=== PATIENT | female | born 1960 | race Caucasian/White ===

== ENCOUNTER 2018-10-23 00:50 | Emergency (ER) | payer MEDICAID, MEDICARE ==
[~2018-10-23] VITALS: Ht 160 cm; Wt 50.0 kg
[2018-10-23] MEDS ORDERED: ipratropium/albuterol 3ml nebule NEB ONE (01:05)
[2018-10-23] MEDS ORDERED: methylPREDNISolone sod succ 125mg/2ml vial IV ONE (01:05)
[2018-10-23] MEDS ORDERED: albuterol 2.5 MG/3 ML nebule NEB ONE (01:05)
[2018-10-23] MEDS ORDERED: albuterol 2.5 mg/0.5ml nebule NEB ONE (01:05)
[2018-10-23 01:35] LABS: ABG BASE EXCESS -0.1 mmol/L (-2.0-3.0); ABG HCO3 24.3 mmol/L (22.0-26.0); ABG OXYGEN SATURATION 96.3 % (95-98); ABG PCO2 (T) 38.2 mmHg (32.0-45.0); ABG PH (T) 7.419 (7.350-7.450); ABG PO2 (T) 88.8 mmHg (83-108); ALLEN'S TEST Positive; FCOHb 1.9 % (0.5-1.5); FO2Hb 94.5 % (94-100); PATIENT TEMPERATURE 36.7; TOTAL HEMOGLOBIN 12.2 G/dl (12.0-16.0)
--- NOTE | 2018-10-23 02:16 | NUR ---
dr. don revisiting pt and told her she is thinking about admitting her. He will wait for her labs to come back.
[2018-10-23 02:39] LABS: BASOPHILS % (AUTO) 0.6 % (0-1); EOSINOPHILS # (AUTO) 0.4 X10'3 (0-0.9); EOSINOPHILS % (AUTO) 6.7 % (0-6); HEMOGLOBIN 11.8 g/dl (12.0-16.0); LYMPHOCYTES # (AUTO) 1.6 X10'3 (1.1-4.8); LYMPHOCYTES % (AUTO) 28.6 % (21-51); MEAN CORPUSCULAR HEMOGLOBIN 25.2 PG (27.0-31.0); MEAN CORPUSCULAR VOLUME 78.7 FL (78-98); MEAN PLATELET VOLUME 7.5 FL (7.4-10.4); MONOCYTES # (AUTO) 0.4 X10'3 (0-0.9); MONOCYTES % (AUTO) 7.8 % (2-12); NEUTROPHILS # (AUTO) 3.2 X10'3 (1.8-7.7); NEUTROPHILS % (AUTO) 56.3 % (42-75); PLATELET COUNT 306 X10'3 (140-440); RED CELL DISTRIBUTION WIDTH 15.1 % (11.5-14.5); WHITE BLOOD COUNT 5.7 X10'3 (4.5-11.0)
[2018-10-23 02:53] LABS: ALANINE AMINOTRANSFERASE 20 U/L (12-78); ALBUMIN/GLOBULIN RATIO 0.7 (1.1-1.5); ALKALINE PHOSPHATASE 135 IU/L (46-116); ANION GAP 9 (8-16); ASPARTATE AMINO TRANSFERASE 16 U/L (10-37); BILIRUBIN,TOTAL 0.2 MG/DL (0.1-1.0); BLOOD UREA NITROGEN 19 MG/DL (7-18); BUN/CREATININE RATIO 30.6 (6.6-38.0); CALCIUM 8.6 MG/DL (8.5-10.1); CHLORIDE 107 MMOL/L (99-107); CREATININE 0.62 MG/DL (0.40-0.90); GLUCOSE 114 MG/DL (70-104); POTASSIUM 3.4 MMOL/L (3.5-5.1); SODIUM 142 MMOL/L (135-145); TOTAL CARBON DIOXIDE 26.1 MMOL/L (24-32); TOTAL PROTEIN 7.1 G/DL (6.4-8.2); eGFR > 90 ML/MIN
[2018-10-23 03:00] LABS: INR 1.1 INR; PROTHROMBIN TIME 10.7 SECONDS (9.0-12.0)
[2018-10-23 03:01] LABS: PARTIAL THROMBOPLASTIN TIME 30 SECONDS (22-32)
[2018-10-23] MEDS ORDERED: PRED20TA PO (03:16)
[2018-10-23] MEDS ORDERED: ALBU8HFA PO (03:16)
[2018-10-23] MEDS ORDERED: AZIT-72 PO (03:16)
--- NOTE | 2018-10-23 03:20 | NUR ---
PT WITH FRIEND AT BEDSIDE. PT REMAINS POLITE AND COOPERATIVE AND WITH STABLE VS. ALL LABS RESULTED AND PT NOW DC READY.
[2018-10-23 03:48] VITALS: BP 125/89
== END 2018-10-23 03:52 | disposition home or self-care (01) ==
LOC: ER 00:51
DX: J44.1 Chronic obstructive pulmonary disease with (acute) exacerbation (principal); F17.200 Nicotine dependence, unspecified, uncomplicated; F12.10 Cannabis abuse, uncomplicated; F11.10 Opioid abuse, uncomplicated; Z56.0 Unemployment, unspecified; Z79.899 Other long term (current) drug therapy; Z90.710 Acquired absence of both cervix and uterus
CPT/HCPCS: 36415; 36600; 71045; 80053; 82803; 83880; 84484; 85018; 85025; 85610; 85730; 93005; 94640; 94760; 96374; 99284; J2930; J7611

== ENCOUNTER 2019-01-01 19:44 | Emergency (ER) | payer MEDICARE ==
[~2019-01-01] VITALS: Ht 157.5 cm; Wt 46.0 kg
[2019-01-01 20:36] LABS: BASOPHILS % (AUTO) 0.5 % (0-1); EOSINOPHILS # (AUTO) 0.3 X10'3 (0-0.9); EOSINOPHILS % (AUTO) 3.4 % (0-6); HEMATOCRIT 38.7 % (35.0-45.0); HEMOGLOBIN 13.1 g/dl (12.0-16.0); LYMPHOCYTES # (AUTO) 1.2 X10'3 (1.1-4.8); LYMPHOCYTES % (AUTO) 15.6 % (21-51); MEAN CORPUSCULAR HGB CONC 33.7 g/dL (33.0-36.5); MEAN CORPUSCULAR VOLUME 80.1 FL (78-98); MEAN PLATELET VOLUME 7.3 FL (7.4-10.4); MONOCYTES # (AUTO) 0.5 X10'3 (0-0.9); MONOCYTES % (AUTO) 6.3 % (2-12); NEUTROPHILS # (AUTO) 5.7 X10'3 (1.8-7.7); NEUTROPHILS % (AUTO) 74.2 % (42-75); PLATELET COUNT 283 X10'3 (140-440); RED BLOOD COUNT 4.83 X10'6 (4.20-5.60); RED CELL DISTRIBUTION WIDTH 17.2 % (11.5-14.5); WHITE BLOOD COUNT 7.7 X10'3 (4.5-11.0)
[2019-01-01 20:49] LABS: PARTIAL THROMBOPLASTIN TIME 31 SECONDS (22-32)
[2019-01-01 20:50] LABS: ALANINE AMINOTRANSFERASE 45 U/L (12-78); ALBUMIN 3.3 G/DL (3.4-5.0); ALBUMIN/GLOBULIN RATIO 0.8 (1.1-1.5); ALKALINE PHOSPHATASE 151 IU/L (46-116); ANION GAP 8 (8-16); ASPARTATE AMINO TRANSFERASE 34 U/L (10-37); BILIRUBIN,TOTAL 0.3 MG/DL (0.1-1.0); BLOOD UREA NITROGEN 13 MG/DL (7-18); BUN/CREATININE RATIO 18.1 (6.6-38.0); CALCIUM 8.8 MG/DL (8.5-10.1); CHLORIDE 106 MMOL/L (99-107); CREATININE 0.72 MG/DL (0.40-0.90); GLUCOSE 103 MG/DL (70-104); SODIUM 140 MMOL/L (135-145); TOTAL CARBON DIOXIDE 26.4 MMOL/L (24-32); TOTAL PROTEIN 7.4 G/DL (6.4-8.2); eGFR 83 ML/MIN
[2019-01-01] MEDS ORDERED: ipratropium/albuterol 3ml nebule NEB ONE (21:00)
[2019-01-01] MEDS ORDERED: PRED20TA PO (21:13)
[2019-01-01] MEDS ORDERED: ALBU8.5H8 INH (21:13)
[2019-01-01] MEDS ORDERED: AZIT-63 PO (21:13)
[2019-01-01] MEDS ORDERED: FLUT1DIS INH (21:13)
[2019-01-01] MEDS ORDERED: methylPREDNISolone sod succ 125mg/2ml vial IV ONE (21:15)
[2019-01-01] MEDS ORDERED: normal saline 1000ml 1,000 ML IV ONE (21:15)
[2019-01-01] MEDS ORDERED: azithromycin 250mg tablet PO ONE (21:15)
[2019-01-01 21:23] VITALS: BP 131/87
== END 2019-01-01 22:24 | disposition home or self-care (01) ==
LOC: ER 19:44
DX: J44.1 Chronic obstructive pulmonary disease with (acute) exacerbation (principal); M06.9 Rheumatoid arthritis, unspecified; F17.210 Nicotine dependence, cigarettes, uncomplicated; Z90.710 Acquired absence of both cervix and uterus; Z56.0 Unemployment, unspecified; Z79.2 Long term (current) use of antibiotics; Z79.899 Other long term (current) drug therapy
CPT/HCPCS: 36415; 71045; 80053; 84484; 85025; 85610; 85730; 93005; 94640; 94760; 96374; 99284; J2930; J7030

== ENCOUNTER 2021-01-25 11:07 | Emergency (ER) | payer MEDICARE, MEDICAID ==
[~2021-01-25] VITALS: Ht 160 cm; Wt 45.5 kg
[~2021-01-25 11:07] MED LIST: ALBU18HF2 INH; CLON0.1T2 PO; NICO-687 TD; ONDA4TAB6 PO
[2021-01-25 12:12] VITALS: BP 126/79
[2021-01-25 13:20] LABS: BASOPHILS % (AUTO) 0.5 % (0-1); EOSINOPHILS # (AUTO) 0.1 X10'3 (0-0.9); EOSINOPHILS % (AUTO) 1.9 % (0-6); HEMOGLOBIN 13.5 g/dl (12.0-16.0); LYMPHOCYTES # (AUTO) 2.1 X10'3 (1.1-4.8); LYMPHOCYTES % (AUTO) 28.4 % (21-51); MEAN CORPUSCULAR HEMOGLOBIN 28.2 PG (27.0-31.0); MEAN CORPUSCULAR VOLUME 85.7 FL (78-98); MEAN PLATELET VOLUME 7.5 FL (7.4-10.4); MONOCYTES # (AUTO) 0.5 X10'3 (0-0.9); NEUTROPHILS # (AUTO) 4.5 X10'3 (1.8-7.7); NEUTROPHILS % (AUTO) 62.2 % (42-75); PLATELET COUNT 243 X10'3 (140-440); RED BLOOD COUNT 4.79 X10'6 (4.20-5.60); RED CELL DISTRIBUTION WIDTH 13.9 % (11.5-14.5); WHITE BLOOD COUNT 7.2 X10'3 (4.5-11.0)
[2021-01-25 13:42] LABS: ALANINE AMINOTRANSFERASE 19 U/L (12-78); ALBUMIN 3.3 G/DL (3.4-5.0); ALBUMIN/GLOBULIN RATIO 0.9 (1.1-1.5); ALKALINE PHOSPHATASE 99 IU/L (46-116); ANION GAP 6 (8-16); ASPARTATE AMINO TRANSFERASE 16 U/L (10-37); BILIRUBIN,TOTAL 0.5 MG/DL (0.1-1.0); BLOOD UREA NITROGEN 10 MG/DL (7-18); BUN/CREATININE RATIO 15.9 (6.6-38.0); CALCIUM 8.6 MG/DL (8.5-10.1); CHLORIDE 103 MMOL/L (99-107); CREATININE 0.63 MG/DL (0.40-0.90); GLUCOSE 125 MG/DL (70-104); POTASSIUM 4.5 MMOL/L (3.5-5.1); SODIUM 140 MMOL/L (135-145); TOTAL CARBON DIOXIDE 30.9 MMOL/L (24-32); TOTAL PROTEIN 7.1 G/DL (6.4-8.2); eGFR > 90 ML/MIN
== END 2021-01-25 15:41 | disposition left against medical advice (07) ==
LOC: ER 11:08
DX: R06.02 Shortness of breath (principal); Z53.21 Procedure and treatment not carried out due to patient leaving prior to being seen by health care provider
CPT/HCPCS: 36415; 71046; 80053; 83880; 85025; 93005; 99285

== ENCOUNTER 2021-04-05 18:32 | Emergency (ER) | payer MEDICARE, MEDICAID ==
[~2021-04-05] VITALS: Ht 160 cm; Wt 45.5 kg
[2021-04-05 18:43] VITALS: BP 108/69
[2021-04-05 19:31] LABS: BASOPHILS % (AUTO) 0.5 % (0-1); EOSINOPHILS # (AUTO) 0.1 X10'3 (0-0.9); EOSINOPHILS % (AUTO) 2.4 % (0-6); HEMATOCRIT 38.8 % (35.0-45.0); HEMOGLOBIN 12.6 g/dl (12.0-16.0); LYMPHOCYTES # (AUTO) 1.9 X10'3 (1.1-4.8); LYMPHOCYTES % (AUTO) 32.4 % (21-51); MEAN CORPUSCULAR HEMOGLOBIN 28.1 PG (27.0-31.0); MEAN CORPUSCULAR HGB CONC 32.5 g/dL (33.0-36.5); MEAN CORPUSCULAR VOLUME 86.3 FL (78-98); MEAN PLATELET VOLUME 7.4 FL (7.4-10.4); MONOCYTES # (AUTO) 0.4 X10'3 (0-0.9); NEUTROPHILS # (AUTO) 3.3 X10'3 (1.8-7.7); NEUTROPHILS % (AUTO) 57.7 % (42-75); PLATELET COUNT 268 X10'3 (140-440); RED BLOOD COUNT 4.49 X10'6 (4.20-5.60); WHITE BLOOD COUNT 5.7 X10'3 (4.5-11.0)
[2021-04-05 19:38] LABS: ALANINE AMINOTRANSFERASE 23 U/L (12-78); ALBUMIN 3.2 G/DL (3.4-5.0); ALBUMIN/GLOBULIN RATIO 0.9 (1.1-1.5); ALKALINE PHOSPHATASE 106 IU/L (46-116); ANION GAP 5 (8-16); ASPARTATE AMINO TRANSFERASE 18 U/L (10-37); BILIRUBIN,TOTAL 0.2 MG/DL (0.1-1.0); BLOOD UREA NITROGEN 14 MG/DL (7-18); BUN/CREATININE RATIO 20.9 (6.6-38.0); CALCIUM 8.7 MG/DL (8.5-10.1); CHLORIDE 108 MMOL/L (99-107); CREATININE 0.67 MG/DL (0.40-0.90); GLUCOSE 104 MG/DL (70-104); POTASSIUM 4.4 MMOL/L (3.5-5.1); SODIUM 144 MMOL/L (135-145); TOTAL CARBON DIOXIDE 31.5 MMOL/L (24-32); TOTAL PROTEIN 6.9 G/DL (6.4-8.2); eGFR 90 ML/MIN
[2021-04-05] MEDS ORDERED: DOXY100C76 PO (20:01)
[2021-04-05] MEDS ORDERED: PRED20TA PO (20:01)
[2021-04-05] MEDS ORDERED: iohexol 350MG/ML 100ml bottle IV ONE (20:24)
[2021-04-05] MEDS ORDERED: ALBUTEROL INHALER 1 PUFF/90 MCG INHALER IH PRN (21:45)
[2021-04-05] MEDS ORDERED: albuterol 2.5 MG/3 ML nebule CONTNEB PRN (21:45)
[2021-04-05] MEDS ORDERED: albuterol 2.5 MG/3 ML nebule NEB ONE (21:45)
[2021-04-05] MEDS ORDERED: ALB0.5UD IH (21:46)
--- NOTE | 2021-04-05 22:24 | NUR ---
pt is ready to go, refused neb and inhaler treatment
--- NOTE | 2021-04-05 22:27 | NUR ---
pt seen and assesed by provider
== END 2021-04-05 22:27 | disposition home or self-care (01) ==
LOC: ER 18:33
DX: U07.1 COVID-19 (principal); J44.1 Chronic obstructive pulmonary disease with (acute) exacerbation; R06.02 Shortness of breath; M19.90 Unspecified osteoarthritis, unspecified site; M06.9 Rheumatoid arthritis, unspecified; F15.90 Other stimulant use, unspecified, uncomplicated; Z56.0 Unemployment, unspecified; Z88.6 Allergy status to analgesic agent; Z79.2 Long term (current) use of antibiotics; Z79.899 Other long term (current) drug therapy
CPT/HCPCS: 36415; 71045; 71275; 80053; 83880; 84484; 85025; 87635; 93005; 99285; C9803; Q9967

== ENCOUNTER 2022-06-15 23:51 | Emergency (ER) | payer MEDICARE, MEDICAID ==
[~2022-06-15] VITALS: Ht 160 cm; Wt 50.0 kg
[2022-06-16] MEDS ORDERED: predniSONE 20 mg tablet PO ONE (01:00)
[2022-06-16] MEDS ORDERED: albuterol 2.5 MG/3 ML nebule CONTNEB PRN (01:00)
[2022-06-16] MEDS ORDERED: ipratropium 0.5 MG/2.5ML nebule IH ONE (01:00)
[2022-06-16] MEDS ORDERED: ipratropium/albuterol 3ml nebule NEB ONE (01:10)
[2022-06-16] MEDS ORDERED: albuterol 2.5 MG/3 ML nebule NEB ONE (01:10)
[2022-06-16] MEDS ORDERED: ALBU90AE INH (01:16)
[2022-06-16] MEDS ORDERED: PRED20TA PO (01:16)
[2022-06-16] MEDS ORDERED: BECL7.3A INH (01:16)
[2022-06-16 02:01] VITALS: BP 146/78
== END 2022-06-16 02:03 | disposition home or self-care (01) ==
LOC: ER 23:52
DX: J44.1 Chronic obstructive pulmonary disease with (acute) exacerbation (principal); J44.9 Chronic obstructive pulmonary disease, unspecified; M19.90 Unspecified osteoarthritis, unspecified site; Z88.5 Allergy status to narcotic agent; Z56.0 Unemployment, unspecified
CPT/HCPCS: 71045; 94640; 99284; J7512; 94760

== ENCOUNTER 2022-06-25 11:55 | Emergency (ER) | payer MEDICARE, MEDICAID ==
[~2022-06-25] VITALS: Ht 157.5 cm; Wt 54.5 kg
[~2022-06-25 11:55] MED LIST changes: +ALBU90AE INH; +BECL7.3A INH; +PRED20TA PO
[2022-06-25 12:40] VITALS: BP 108/71
[2022-06-25] MEDS ORDERED: ALBU8HFA PO (17:13)
[2022-06-25] MEDS ORDERED: PRED20TA PO (17:13)
[2022-06-25] MEDS ORDERED: PENI500T2 PO (17:13)
== END 2022-06-25 17:59 | disposition home or self-care (01) ==
LOC: ER 11:55
DX: K08.89 Other specified disorders of teeth and supporting structures (principal); J44.1 Chronic obstructive pulmonary disease with (acute) exacerbation; M19.90 Unspecified osteoarthritis, unspecified site; F17.200 Nicotine dependence, unspecified, uncomplicated; F15.90 Other stimulant use, unspecified, uncomplicated; Z90.710 Acquired absence of both cervix and uterus; Z56.0 Unemployment, unspecified; Z88.5 Allergy status to narcotic agent; Z79.2 Long term (current) use of antibiotics; Z79.899 Other long term (current) drug therapy
CPT/HCPCS: 99283

== ENCOUNTER 2023-07-24 23:05 | Emergency (ER) | payer BC, MEDICAID ==
[~2023-07-24] VITALS: Ht 160 cm; Wt 50.9 kg
[~2023-07-24 23:05] MED LIST changes: +ALB0.5UD IH; -ALBU90AE INH; +ATR0.5NEB IH; -BECL7.3A INH; -CLON0.1T2 PO; +FLUT1DIS4 INH; +METH10SO PO; -NICO-687 TD; +NICO-731 TOP; -ONDA4TAB6 PO; -PRED20TA PO
[2023-07-24 23:08] VITALS: TEMP 98.4
[2023-07-24 23:38] LABS: BASOPHILS % (AUTO) 0.6 % (0-1); EOSINOPHILS # (AUTO) 0.3 X10'3 (0-0.9); EOSINOPHILS % (AUTO) 4.4 % (0-6); HEMATOCRIT 37.4 % (35.0-45.0); HEMOGLOBIN 12.1 g/dl (12.0-16.0); LYMPHOCYTES # (AUTO) 1.6 X10'3 (1.1-4.8); LYMPHOCYTES % (AUTO) 23.6 % (21-51); MEAN CORPUSCULAR HEMOGLOBIN 27.1 PG (27.0-31.0); MEAN CORPUSCULAR HGB CONC 32.4 g/dL (33.0-36.5); MEAN CORPUSCULAR VOLUME 83.6 FL (78-98); MEAN PLATELET VOLUME 6.8 FL (7.4-10.4); MONOCYTES # (AUTO) 0.5 X10'3 (0-0.9); MONOCYTES % (AUTO) 7.8 % (2-12); NEUTROPHILS # (AUTO) 4.3 X10'3 (1.8-7.7); NEUTROPHILS % (AUTO) 63.6 % (42-75); PLATELET COUNT 223 X10'3 (140-440); RED BLOOD COUNT 4.47 X10'6 (4.20-5.60); RED CELL DISTRIBUTION WIDTH 14.4 % (11.5-14.5); WHITE BLOOD COUNT 6.7 X10'3 (4.5-11.0)
[2023-07-24 23:49] LABS: ALANINE AMINOTRANSFERASE 93 U/L (12-78); ALBUMIN 3.1 G/DL (3.4-5.0); ALBUMIN/GLOBULIN RATIO 0.8 (1.1-1.5); ALKALINE PHOSPHATASE 145 IU/L (46-116); ANION GAP 7 (8-16); ASPARTATE AMINO TRANSFERASE 126 U/L (10-37); BILIRUBIN,TOTAL 0.2 MG/DL (0.1-1.0); BLOOD UREA NITROGEN 16 MG/DL (7-18); BUN/CREATININE RATIO 26.7 (10.0-20.0); CALCIUM 8.5 MG/DL (8.5-10.1); CHLORIDE 102 MMOL/L (99-107); GLUCOSE 107 MG/DL (70-104); POTASSIUM 3.8 MMOL/L (3.5-5.1); SODIUM 138 MMOL/L (135-145); TOTAL CARBON DIOXIDE 29.5 MMOL/L (24-32); TOTAL PROTEIN 6.8 G/DL (6.4-8.2); eCRCL 79 ML/MIN; eGFR > 90 ML/MIN
[2023-07-24 23:57] LABS: PRO BRAIN NATRIURETIC PEPTIDE 83 PG/ML (0-125)
[2023-07-25] MEDS ORDERED: ipratropium 0.5 MG/2.5ML nebule IH ONE (00:25)
[2023-07-25] MEDS ORDERED: amox tr/potassium clavulanate 875/125mg TAB PO ONE (00:25)
[2023-07-25] MEDS ORDERED: normal saline 1000ML IV soln IVB ONE (00:25)
[2023-07-25] MEDS ORDERED: methylPREDNISolone sod succ 125mg/2ml vial IV ONE (00:25)
[2023-07-25] MEDS ORDERED: albuterol 2.5 MG/3 ML nebule CONTNEB PRN (00:25)
[2023-07-25 00:48] VITALS: PULSE 76; RESP 20; O2SAT 94
[2023-07-25 02:30] VITALS: BP 122/71; PULSE 81; RESP 19; O2SAT 91
[2023-07-25] MEDS ORDERED: PRED20TA PO (02:33)
[2023-07-25] MEDS ORDERED: ALBU8HFA PO (02:33)
[2023-07-25] MEDS ORDERED: AMOX-580 PO (02:33)
== END 2023-07-25 02:49 | disposition home or self-care (01) ==
LOC: ER 23:06
DX: J44.1 Chronic obstructive pulmonary disease with (acute) exacerbation (principal); R05.9 Cough, unspecified; J44.9 Chronic obstructive pulmonary disease, unspecified; M19.90 Unspecified osteoarthritis, unspecified site; F15.90 Other stimulant use, unspecified, uncomplicated; Z88.5 Allergy status to narcotic agent; Z79.899 Other long term (current) drug therapy; Z90.710 Acquired absence of both cervix and uterus
CPT/HCPCS: 36415; 71045; 80053; 83880; 84484; 85025; 93005; 94640; 94644; 94645; 96361; 96374; 99285; J2930; J7030; 94760; A4615; A7015

== ENCOUNTER 2023-09-01 23:03 | Emergency (ER) | payer BC, MEDICAID ==
[~2023-09-01] VITALS: Ht 160 cm; Wt 50.0 kg
[2023-09-01 23:34] LABS: BASOPHILS % (AUTO) 0.7 % (0-1); EOSINOPHILS # (AUTO) 0.3 X10'3 (0-0.9); EOSINOPHILS % (AUTO) 6.3 % (0-6); HEMOGLOBIN 11.1 g/dl (12.0-16.0); LYMPHOCYTES # (AUTO) 1.3 X10'3 (1.1-4.8); LYMPHOCYTES % (AUTO) 25.1 % (21-51); MEAN CORPUSCULAR HEMOGLOBIN 27.1 PG (27.0-31.0); MEAN CORPUSCULAR HGB CONC 32.6 g/dL (33.0-36.5); MEAN CORPUSCULAR VOLUME 83.4 FL (78-98); MONOCYTES # (AUTO) 0.5 X10'3 (0-0.9); MONOCYTES % (AUTO) 9.3 % (2-12); NEUTROPHILS % (AUTO) 58.6 % (42-75); PLATELET COUNT 210 X10'3 (140-440); RED BLOOD COUNT 4.08 X10'6 (4.20-5.60); RED CELL DISTRIBUTION WIDTH 13.9 % (11.5-14.5); WHITE BLOOD COUNT 5.1 X10'3 (4.5-11.0)
[2023-09-01 23:48] LABS: ALANINE AMINOTRANSFERASE 42 U/L (12-78); ALBUMIN 2.8 G/DL (3.4-5.0); ALBUMIN/GLOBULIN RATIO 0.8 (1.1-1.5); ALKALINE PHOSPHATASE 129 IU/L (46-116); ANION GAP 6 (8-16); ASPARTATE AMINO TRANSFERASE 34 U/L (10-37); BILIRUBIN,TOTAL 0.2 MG/DL (0.1-1.0); BLOOD UREA NITROGEN 15 MG/DL (7-18); CALCIUM 7.9 MG/DL (8.5-10.1); CHLORIDE 110 MMOL/L (99-107); CREATININE 0.79 MG/DL (0.40-0.90); GLUCOSE 106 MG/DL (70-104); SODIUM 146 MMOL/L (135-145); TOTAL CARBON DIOXIDE 30.1 MMOL/L (24-32); TOTAL PROTEIN 6.2 G/DL (6.4-8.2); eCRCL 58 ML/MIN; eGFR 74 ML/MIN
[2023-09-01 23:50] LABS: PRO BRAIN NATRIURETIC PEPTIDE 276 PG/ML (0-125)
[2023-09-02] MEDS ORDERED: ADV50100 INH (00:30)
[2023-09-02 01:39] VITALS: BP 123/82; PULSE 74; RESP 16; TEMP 98.6; O2SAT 98
== END 2023-09-02 01:42 | disposition home or self-care (01) ==
LOC: ER 23:04
DX: R06.02 Shortness of breath (principal); Z20.822 Contact with and (suspected) exposure to COVID-19; J44.9 Chronic obstructive pulmonary disease, unspecified; M19.90 Unspecified osteoarthritis, unspecified site; F15.90 Other stimulant use, unspecified, uncomplicated; Z88.5 Allergy status to narcotic agent; Z79.899 Other long term (current) drug therapy
CPT/HCPCS: 36415; 71045; 80053; 83880; 84484; 85025; 87502; 87503; 87811; 93005; 99285

== ENCOUNTER 2023-09-19 19:47 | Emergency (ER) | payer BC, MEDICAID ==
[~2023-09-19] VITALS: Ht 160 cm; Wt 50.0 kg
[~2023-09-19 19:47] MED LIST changes: +ADV50100 INH
[2023-09-19 20:27] VITALS: PULSE 82; RESP 16; O2SAT 94
[2023-09-19] MEDS: ipratropium/albuterol 3ml nebule NEB ONE (20:27)
[2023-09-19 20:33] VITALS: PULSE 82; RESP 16; O2SAT 93
[2023-09-19] MEDS: magnesium 2GM in 50ml NS 50 ML IV ONE (20:35)
[2023-09-19] MEDS: methylPREDNISolone sod succ 125mg/2ml vial IV ONE (20:35)
[2023-09-19 20:45] VITALS: RESP 18
[2023-09-19 20:53] LABS: BASOPHILS % (AUTO) 0.5 % (0-1); EOSINOPHILS # (AUTO) 0.3 X10'3 (0-0.9); EOSINOPHILS % (AUTO) 5.8 % (0-6); HEMOGLOBIN 11.8 g/dl (12.0-16.0); LYMPHOCYTES # (AUTO) 1.7 X10'3 (1.1-4.8); LYMPHOCYTES % (AUTO) 28.5 % (21-51); MEAN CORPUSCULAR HEMOGLOBIN 26.9 PG (27.0-31.0); MEAN CORPUSCULAR HGB CONC 32.7 g/dL (33.0-36.5); MEAN CORPUSCULAR VOLUME 82.2 FL (78-98); MEAN PLATELET VOLUME 6.9 FL (7.4-10.4); MONOCYTES # (AUTO) 0.4 X10'3 (0-0.9); MONOCYTES % (AUTO) 6.4 % (2-12); NEUTROPHILS # (AUTO) 3.5 X10'3 (1.8-7.7); NEUTROPHILS % (AUTO) 58.8 % (42-75); PLATELET COUNT 308 X10'3 (140-440); RED BLOOD COUNT 4.38 X10'6 (4.20-5.60); RED CELL DISTRIBUTION WIDTH 14.3 % (11.5-14.5)
[2023-09-19 21:41] LABS: ALBUMIN 2.8 G/DL (3.4-5.0); ANION GAP 4 (8-16); BLOOD UREA NITROGEN 14 MG/DL (7-18); BUN/CREATININE RATIO 20.6 (10.0-20.0); CALCIUM 7.9 MG/DL (8.5-10.1); CHLORIDE 108 MMOL/L (99-107); CREATININE 0.68 MG/DL (0.40-0.90); GLUCOSE 113 MG/DL (70-104); POTASSIUM 4.1 MMOL/L (3.5-5.1); PRO BRAIN NATRIURETIC PEPTIDE 577 PG/ML (0-125); SODIUM 146 MMOL/L (135-145); TOTAL CARBON DIOXIDE 33.7 MMOL/L (24-32); eCRCL 68 ML/MIN; eGFR 88 ML/MIN
[2023-09-19] MEDS: dexamethasone sod phosphate 10mg/ml inj IV STA (21:49)
[2023-09-19] MEDS: furosemide 10 MG/1 ML 10ml inj IV ONE (22:20)
[2023-09-20 00:44] VITALS: BP 93/63; PULSE 74; O2SAT 92
[2023-09-20 01:28] VITALS: TEMP 98
== END 2023-09-20 01:31 | disposition home or self-care (01) ==
LOC: ER 19:48
DX: J44.1 Chronic obstructive pulmonary disease with (acute) exacerbation (principal); M06.9 Rheumatoid arthritis, unspecified; F15.90 Other stimulant use, unspecified, uncomplicated; F11.20 Opioid dependence, uncomplicated; Z56.0 Unemployment, unspecified; Z88.5 Allergy status to narcotic agent; Z88.8 Allergy status to other drugs, medicaments and biological substances; Z79.899 Other long term (current) drug therapy
CPT/HCPCS: 36415; 71045; 80048; 83880; 84484; 85025; 93005; 94640; 96365; 96375; 99285; J1100; J1940; J2930; J3475; 94760

== ENCOUNTER 2023-09-22 15:10 | Emergency (ER) | payer BC, MEDICAID ==
[~2023-09-22] VITALS: Ht 160 cm; Wt 50.0 kg
[2023-09-22 15:56] LABS: BASOPHILS % (AUTO) 0.5 % (0-1); EOSINOPHILS # (AUTO) 0.4 X10'3 (0-0.9); EOSINOPHILS % (AUTO) 5.1 % (0-6); HEMATOCRIT 37.8 % (35.0-45.0); LYMPHOCYTES # (AUTO) 1.7 X10'3 (1.1-4.8); LYMPHOCYTES % (AUTO) 23.8 % (21-51); MEAN CORPUSCULAR HEMOGLOBIN 26.4 PG (27.0-31.0); MEAN CORPUSCULAR HGB CONC 31.9 g/dL (33.0-36.5); MEAN CORPUSCULAR VOLUME 82.9 FL (78-98); MEAN PLATELET VOLUME 6.8 FL (7.4-10.4); MONOCYTES # (AUTO) 0.5 X10'3 (0-0.9); MONOCYTES % (AUTO) 6.8 % (2-12); NEUTROPHILS # (AUTO) 4.6 X10'3 (1.8-7.7); NEUTROPHILS % (AUTO) 63.8 % (42-75); PLATELET COUNT 349 X10'3 (140-440); RED BLOOD COUNT 4.56 X10'6 (4.20-5.60); RED CELL DISTRIBUTION WIDTH 14.4 % (11.5-14.5); WHITE BLOOD COUNT 7.3 X10'3 (4.5-11.0)
[2023-09-22 16:30] LABS: ANION GAP 8 (8-16); BLOOD UREA NITROGEN 21 MG/DL (7-18); BUN/CREATININE RATIO 38.2 (10.0-20.0); CALCIUM 8.6 MG/DL (8.5-10.1); CHLORIDE 105 MMOL/L (99-107); CREATININE 0.55 MG/DL (0.40-0.90); GLUCOSE 99 MG/DL (70-104); POTASSIUM 4.3 MMOL/L (3.5-5.1); PRO BRAIN NATRIURETIC PEPTIDE 336 PG/ML (0-125); SODIUM 144 MMOL/L (135-145); TOTAL CARBON DIOXIDE 31.5 MMOL/L (24-32); eCRCL 84 ML/MIN; eGFR > 90 ML/MIN
[2023-09-22] MEDS: ipratropium/albuterol 3ml nebule NEB STA (18:55)
[2023-09-22 18:58] VITALS: PULSE 73; RESP 16; O2SAT 93
[2023-09-22] MEDS: dexamethasone sod phosphate 10mg/ml inj PO STA (18:59)
[2023-09-22 19:03] VITALS: PULSE 68; RESP 20; O2SAT 96
[2023-09-22] MEDS ORDERED: BUDE10.2 INH (19:03)
[2023-09-22 19:14] VITALS: BP 115/71; PULSE 76; RESP 18; TEMP 98.8; O2SAT 93
== END 2023-09-22 19:26 | disposition home or self-care (01) ==
LOC: ER 15:10
DX: J40 Bronchitis, not specified as acute or chronic (principal); J44.9 Chronic obstructive pulmonary disease, unspecified; M19.90 Unspecified osteoarthritis, unspecified site; F15.90 Other stimulant use, unspecified, uncomplicated; Z88.5 Allergy status to narcotic agent; Z79.899 Other long term (current) drug therapy
CPT/HCPCS: 36415; 71045; 80048; 83880; 84484; 85025; 93005; 94640; 99285; J1100

== ENCOUNTER 2024-06-15 11:05 | Emergency (ER) | payer BC, MEDICAID ==
[~2024-06-15] VITALS: Ht 160 cm; Wt 50.0 kg
[~2024-06-15 11:05] MED LIST changes: -ADV50100 INH; +BUDE10.2 INH
[2024-06-15 11:40] LABS: BASOPHILS # (AUTO) 0.1 X10'3 (0-0.2); BASOPHILS % (AUTO) 0.5 % (0-1); EOSINOPHILS # (AUTO) 0.1 X10'3 (0-0.9); EOSINOPHILS % (AUTO) 0.7 % (0-6); HEMOGLOBIN 11.5 g/dl (12.0-16.0); LYMPHOCYTES # (AUTO) 1.5 X10'3 (1.1-4.8); MEAN CORPUSCULAR HEMOGLOBIN 22.8 PG (27.0-31.0); MEAN CORPUSCULAR VOLUME 71.4 FL (78-98); MEAN PLATELET VOLUME 6.6 FL (7.4-10.4); MONOCYTES # (AUTO) 0.6 X10'3 (0-0.9); MONOCYTES % (AUTO) 5.3 % (2-12); NEUTROPHILS # (AUTO) 8.3 X10'3 (1.8-7.7); NEUTROPHILS % (AUTO) 79.5 % (42-75); PLATELET COUNT 636 X10'3 (140-440); RED BLOOD COUNT 5.04 X10'6 (4.20-5.60); RED CELL DISTRIBUTION WIDTH 17.7 % (11.5-14.5); WHITE BLOOD COUNT 10.4 X10'3 (4.5-11.0)
[2024-06-15 11:54] LABS: ALANINE AMINOTRANSFERASE 21 U/L (12-78); ALBUMIN/GLOBULIN RATIO 0.6 (1.1-1.5); ALKALINE PHOSPHATASE 113 IU/L (46-116); ANION GAP 12 (8-16); ASPARTATE AMINO TRANSFERASE 16 U/L (10-37); BILIRUBIN,TOTAL 0.4 MG/DL (0.1-1.0); BLOOD UREA NITROGEN 26 MG/DL (7-18); BUN/CREATININE RATIO 44.1 (10.0-20.0); CALCIUM 9.1 MG/DL (8.5-10.1); CHLORIDE 102 MMOL/L (99-107); CREATININE 0.59 MG/DL (0.40-0.90); GLUCOSE 115 MG/DL (70-104); LIPASE 14 U/L (16-77); POTASSIUM 3.7 MMOL/L (3.5-5.1); SODIUM 138 MMOL/L (135-145); TOTAL PROTEIN 8.3 G/DL (6.4-8.2); eCRCL 78 ML/MIN; eGFR > 90 ML/MIN
[2024-06-15 12:13] LABS: INR 1.1 INR; PROTHROMBIN TIME 11.1 SECONDS (9.0-12.0)
[2024-06-15] MEDS: cloNIDine 0.1 mg tablet PO SCH (12:16)
[2024-06-15] MEDS: LIDOcaine 2% Viscous 15ml cup MM ONE (12:16)
[2024-06-15] MEDS: mag hydrox/Alum hydrox/simeth 30ml oral suspension PO ONE (12:16)
[2024-06-15] MEDS: famotidine 20mg tablet PO ONE (12:16)
[2024-06-15] MEDS: dicyclomine 10 MG capsule PO ONE (12:16)
[2024-06-15] MEDS: ondansetron 4mg rapidly disintigrating tab PO ONE (12:16)
[2024-06-15] MEDS: HYDROmorphone 1 mg/ml syringe IV ONE (12:44)
[2024-06-15] MEDS: normal saline 1000ml 1,000 ML IV ONE (12:45)
[2024-06-15 13:47] VITALS: BP 154/86; PULSE 100; RESP 16; TEMP 97.9; O2SAT 96
== END 2024-06-15 13:59 ==
LOC: ER 11:05
DX: S06.5X0A Traumatic subdural hemorrhage without loss of consciousness, initial encounter (principal); F11.23 Opioid dependence with withdrawal; F19.90 Other psychoactive substance use, unspecified, uncomplicated; F15.90 Other stimulant use, unspecified, uncomplicated; M19.90 Unspecified osteoarthritis, unspecified site; J44.9 Chronic obstructive pulmonary disease, unspecified; Z90.710 Acquired absence of both cervix and uterus; Z56.0 Unemployment, unspecified; Z88.5 Allergy status to narcotic agent; Z79.899 Other long term (current) drug therapy; W18.39XA Other fall on same level, initial encounter; Y93.89 Activity, other specified; Y92.091 Bathroom in other non-institutional residence as the place of occurrence of the external cause; Y99.8 Other external cause status
CPT/HCPCS: 36415; 70450; 80053; 82948; 83690; 84484; 85025; 85610; 93005; 96361; 96374; 99291; J1171; J7030; A4615

== ENCOUNTER 2025-07-16 20:45 | Emergency (ER) | payer BC, MEDICAID ==
[~2025-07-16] VITALS: Ht 157.5 cm; Wt 54.0 kg
[2025-07-16 21:11] LABS: MEAN PLATELET VOLUME 6.2 FL (7.4-10.4); RED CELL DISTRIBUTION WIDTH 13.8 % (11.5-14.5)
--- NOTE | 2025-07-16 21:27 | RADIOLOGY REPORT ---
EXAM: DI CHEST,SINGLE VIEW CLINICAL HISTORY: CP TECHNIQUE: Single AP view of the chest WID: COMPARISON: DI CHEST,SINGLE VIEW on DOS: 09/22/23 FINDINGS: Lines and tubes: None Chest: The heart size and pulmonary vasculature is within normal limits. Prominence of the central pulmonary arteries. Mild calcified plaque projects over the aortic arch. No pleural effusion, pneumothorax, or consolidation. The osseous structures are grossly intact. IMPRESSION: 1. No acute cardiopulmonary abnormality. 2. Prominence of the central pulmonary arteries which can be seen in the setting of pulmonary hypertension.
[2025-07-16 21:30] LABS: CREATININE 0.63 MG/DL (0.40-0.90); PRO BRAIN NATRIURETIC PEPTIDE 266 PG/ML (0-125); TOTAL CARBON DIOXIDE 28.2 MMOL/L (24-32); eCRCL 72 ML/MIN; eGFR > 90 ML/MIN
[2025-07-16 23:17] LABS: LEUKOCYTE ESTERASE ,URINE NEGATIVE (Neg); NITRITES, URINE NEGATIVE (Neg); OCCULT BLOOD,URINE NEGATIVE (Neg)
[2025-07-16 23:23] LABS: UA COLLECTION TYPE NON-SPECIFIED
--- NOTE | 2025-07-17 00:26 | Physician Documentation ---
History of Present Illness ~ Chief Complaint: Chest Pain Stated Complaint: CHEST PAIN Time Seen by MD: 21:22 Primary Medical Doctor: none Mode of Arrival: EMS HPI Patient is a very pleasant 64-year-old female that presents to the emergency department for evaluation of substernal chest pain with cough and inspiration. Patient reports that she has recently been ill and has been coughing more than normal. Patient reports that she has a history of COPD. Patient reports that her chest hurts when she coughs. Patient reports he has a history of rheumatoid arthritis. Patient denies fever chills nausea vomiting diarrhea at this time. Medication Reconciliation Allergies: Coded Allergies: morphine (Unverified Adverse Reaction, Unknown, ANGERY, 07/24/23) Scheduled Azithromycin (Azithromycin), 1 TAB PO DAILY Budesonide/Formoterol Fumarate (Symbicort 160-4.5 Mcg Inhaler), 2 PUFFS INH Q12H Fluticasone/Salmeterol (Advair 250-50 Diskus), 1 PUFFS INH Q12H Methadone Hcl (Methadone Liquid), 120 MG PO DAILY, (Reported) Nicotine (Nicotine Patch), 1 PATCH TOP DAILY Prednisone* (Prednisone*), 1 TAB PO DAILY Scheduled PRN Albuterol Sulfate (Ventolin Hfa), 2 PUFFS INH Q4H PRN for SOB or wheezing Albuterol Sulfate Nebs* (Proventil Nebs*), 2.5 MG IH Q4H PRN for SOB or wheezing Ipratropium [place] Neb* (Atrovent Neb*), 0.5 MG IH Q4H PRN for SOB or wheezing Past Medical History Past Medical History: COPD, Arthritis, Rheumatoid Arthritis Past Surgical History: hysterectomy Patient History: FH: COPD (chronic obstructive pulmonary disease) MOTHER (COPD), Other Past Family History: None Alcohol Use: None Drug Use: methamphetamine, heroin, other Lives with: Other Lives In: Home Occupation: unemployed Review of Systems ROS As stated above in the HPI, otherwise all systems are reviewed and negative. Physical Exam Vital Signs: Temperature: 98.4, Source: Oral, Heart Rate: 112, Respiratory Rate: 22, BP: 123/94, Pulse Oximetry: 97, Weight: 54.000 Oxygen Flow Rate: 0 Physical Exam VITALS: Reviewed and as above. GENERAL: Alert, no apparent distress. HEENT: Normocephalic, atraumatic, PERRL, EOMI, dry mucosa, no erythema RESPIRATORY: Mild inspiratory wheezing noted upon auscultation, no respiratory distress, patient reports improvement in comfort after breathing treatment. CHEST: No accessory muscle use, no retractions CV: Regular rate, rhythm, no edema, no murmur, No: JVD GI: Soft, non-tender, bowels sounds present, no rebound, guarding, or rigidity BACK: No CVA tenderness, or swelling MUSCULOSKELETAL No deformities, no edema, tenderness with palpation to the midsternum, patient reports chest pain with cough and deep inspiration. SKIN: Warm and dry, no rash NEURO: Oriented x4, No motor or sensory deficit PSYCH: Normal mood and affect, no agitation Progress Results/Orders Results/Orders Completed Orders - TREVA VALDEZ Urinalysis, Cult If Indicated (07/16/25 21:55) Azithromycin Tablet (Zithromax Tablet) (07/17/25 00:55) Prednisone Tablet (Prednisone Tablet) (07/17/25 00:55) Ipratropium/Albuterol Nebule (Ipratrop/A (07/17/25 01:20) Prednisone Tablet (Prednisone Tablet) (07/17/25 01:25) Ipratropium/Albuterol Nebule (Ipratrop/A (07/17/25 01:28) Medications Received in ER Medications (Trade) Dose Ordered Sig/Coni Route PRN Reason Start Time Stop Time Status Last Admin Dose Admin (ipratrop/ albuterol 0.5-3(2.5) MG/3ml nebule) 3 ml ONCE STAT NEB 07/17/25 01:28 07/17/25 01:33 DC 07/17/25 01:35 3 ML Vital Signs 07/16/25 07/16/25 07/17/25 20:53 20:58 01:36 Temp 98.4 Pulse 112 97 Resp 22 20 B/P (MAP) 123/94 Pulse Ox 97 O2 Delivery Room Air* O2 Flow Rate 0 0 FiO2 21 Laboratory Tests Test 07/16/25 21:03 07/16/25 22:49 07/16/25 23:16 07/16/25 23:57 White Blood Count 12.1 H Red Blood Count 4.46 Hemoglobin 10.9 L Hematocrit 33.6 L Mean Corpuscular Volume 75.3 L Mean Corpuscular Hemoglobin 24.5 L Mean Corpuscular Hemoglobin Concent 32.5 L Red Cell Distribution Width 13.8 Platelet Count 527 H Mean Platelet Volume 6.2 L Neutrophils (%) (Auto) 87.4 H Lymphocytes (%) (Auto) 5.6 L Monocytes (%) (Auto) 5.5 Eosinophils (%) (Auto) 1.2 Basophils (%) (Auto) 0.3 Neutrophils # (Auto) 10.6 H Lymphocytes # (Auto) 0.7 L Monocytes # (Auto) 0.7 Eosinophils # (Auto) 0.1 Basophils # (Auto) 0.0 CBC Comment Sodium Level 141 Potassium Level 3.7 Chloride Level 106 Carbon Dioxide Level 28.2 Anion Gap 7 L Blood Urea Nitrogen 16 Creatinine 0.63 Estimated GFR/1.73 m2 > 90 BUN/Creatinine Ratio 25.4 H Glucose Level 189 H Calcium Level 8.6 Troponin I High Sensitivity 5 5 7 Pro-B-Type Natriuretic Peptide 266 H Albumin 2.1 L Chemistry Comments Urine Specimen Description Non-specified Urine Color Yellow Urine Clarity Clear Urine pH 7.0 Urine Specific [place] 1.020 Urine Protein Negative Urine Glucose (UA) Negative Urine Ketones Negative Urine Occult Blood Negative Urine Nitrite Negative Urine Bilirubin Negative Urine Urobilinogen 0.2 Urine Leukocyte Esterase Negative Urine Culture Indicated Not ind Volume Urine Centrifuged 10 ml Urine Comment Troponin I High Sens Percent Delta 0 40 Troponin I Hi Sens Absolute Change 0 2 Medical Decision Making Additional information obtaine: other Findings Medical Decision Making - Moderate Complexity Chief Complaint: Substernal chest pain with cough and inspiration History of Present Illness: This 64-year-old female with a history of chronic obstructive pulmonary disease (COPD) and rheumatoid arthritis presents to the emergency department with substernal chest pain that is pleuritic in nature, worsening with cough and inspiration. The patient reports recent illness with increased cough frequency beyond her baseline. She denies shortness of breath, lightheadedness, radiating chest pain, fever, chills, nausea, vomiting, or diarrhea. Differential Diagnosis Considered: The differential diagnosis for pleuritic chest pain in a patient with COPD includes life-threatening conditions such as acute coronary syndrome, pulmonary embolism, pneumothorax, and pneumonia, as well as acute exacerbation of COPD, viral pleurisy, costochondritis, and musculoskeletal chest wall pain. [3-5] Diagnostic Workup: Laboratory studies: Mildly elevated white blood cell count, consistent with acute exacerbation of COPD or recent viral illness. Cardiac biomarkers negative for acute myocardial injury. 12-lead electrocardiogram: No acute ST-segment changes, no new conduction abnormalities, no evidence of ischemia or infarction. Chest radiograph: No infiltrate, effusion, pneumothorax, or other acute cardiopulmonary process. Complete cardiac workup: Negative for acute coronary syndrome. Assessment: Based on the clinical presentation of pleuritic chest pain in the setting of recent illness with increased cough in a patient with known COPD, combined with reassuring diagnostic studies, the most likely diagnosis is acute exacerbation of COPD with associated pleuritic chest pain. [2][5] The patient's presentation with increased cough frequency beyond baseline is consistent with a mild to moderate COPD exacerbation. [2][5] Life-threatening etiologies including acute coronary syndrome, pulmonary embolism, pneumothorax, and pneumonia have been appropriately excluded. [6] The mildly elevated white blood cell count is consistent with acute exacerbation of COPD and does not suggest bacterial pneumonia in the absence of fever or infiltrate on chest radiography. [5] Plan: The patient is hemodynamically stable and appropriate for discharge home with outpatient follow-up and treatment for acute exacerbation of COPD. Discharge plan includes: Systemic corticosteroids: Prednisone 40 mg orally daily for 5 days. Systemic corticosteroids improve lung function, oxygenation, and shorten recovery time in COPD exacerbations. A 5-day course is as effective as longer courses with fewer adverse effects. [1][7] Antibiotic therapy: [Specify antibiotic, dose, and duration - typically 5 days]. Antibiotics are indicated for COPD exacerbations with increased cough and sputum, and can shorten recovery time and reduce risk of treatment failure. First-line options include amoxicillin-clavulanate, doxycycline, azithromycin, or trimethoprim-sulfamethoxazole based on local resistance patterns. [1-2] Bronchodilator therapy: Continue or initiate short-acting beta-agonist (albuterol) as needed for symptom relief. [1][5] Pain management: Nonsteroidal anti-inflammatory drugs (NSAIDs) as appropriate for pleuritic pain, with consideration of the patient's rheumatoid arthritis treatment regimen and corticosteroid use. [3][8] Primary care follow-up: Patient instructed to follow up with primary care pr ovider within 7-14 days for reassessment, to ensure symptom resolution, and to optimize COPD maintenance therapy. [2] Return precautions: Patient counseled to return to the emergency department immediately for any of the following: worsening chest pain, new or worsening shortness of breath or dyspnea at rest, syncope, fever, hemoptysis, confusion, or any other concerning symptoms. Expected course: Patient advised that COPD exacerbations typically improve over several days with appropriate treatment, though full recovery may take 4-6 weeks. [5] Disposition: Discharge home in stable condition with close outpatient follow-up and appropriate pharmacologic therapy for acute exacerbation of COPD. Risk Stratification: Low risk for major adverse cardiac events based on negative cardiac workup, normal ECG, and clinical presentation consistent with non- cardiac etiology. [6][9] Appropriate for outpatient management of COPD exacerbation given absence of severe dyspnea at rest, hypoxemia, respiratory distress, or other indications for hospitalization. [2] Heart Score: 2 Differential Dx:Considerations: Include: angina, aortic dissection, chest wall pain, cholelithiasis, CHF, costochondritis, esophageal reflux/spasm, gastritis, herpes zoster, myocardial infarction, pericarditis, pleuritis, pancreatitis, pneumonia, pneumothorax, pulmonary embolus, other Departure Disposition: 01 HOME / SELF CARE / HOMELESS Impression: Primary Impression: Chest pain Additional Impressions: Chest wall pain Pleuritic pain COPD exacerbation Condition: Stable Discharge Instructions: Chest Wall Pain, Pleurisy, [id number] Additional Instructions: Your Diagnosis: COPD flare-up (exacerbation) with chest pain from coughing What This Means: Your COPD has flared up, causing you to cough more than usual. The chest pain you are experiencing is from the increased coughing and irritation in your chest. Your heart tests, chest x-ray, and blood work showed that your heart is fine. We are treating your COPD flare-up with antibiotics and steroids to help you breathe better and reduce inflammation in your lungs. Your Medications: You received your first doses of both medications here in the emergency department. Azithromycin (antibiotic): Take as prescribed (typically one tablet daily for 5 days total) Take with or without food Finish all the medication even if you start feeling better This medication helps fight infection in your lungs Prednisone (steroid): Take as prescribed (typically one dose daily for 5 days total) Take with food to avoid stomach upset Take in the morning if possible Do not stop this medication suddenly - take the full course as directed This medication reduces inflammation in your lungs Albuterol Inhaler (rescue inhaler): Use as needed for shortness of breath or wheezing You may need to use this more often during your flare-up If you need to use it more than every 4 hours, call your doctor Important Information About Your Medications: Azithromycin side effects to watch for: Diarrhea or stomach upset (common and usually mild) Ringing in your ears or hearing changes Irregular heartbeat or palpitations Prednisone side effects to watch for: Increased blood sugar (especially important if you have diabetes - check your blood sugar more often) Trouble sleeping (this is why we recommend taking it in the morning) Increased appetite Mood changes or feeling anxious Stomach upset What You Should Do at Home: General Care: Rest as needed - your body needs time to recover Stay well hydrated - drink plenty of water Continue all your regular COPD medications as prescribed Avoid smoke, fumes, and air pollution Use a pillow to support your chest when coughing Practice breathing exercises as you have been taught Recovery Timeline: You should start feeling better within a few days Full recovery from a COPD flare-up can take 4-6 weeks Some people do not return completely to their baseline after a flare-up Follow-Up: Call your primary care doctor within 1-2 days to schedule a follow-up appointment You should be seen within 1-2 weeks Your doctor will check that you are recovering properly and may adjust your COPD medications to prevent future flare-ups When to Return to the Emergency Department Immediately: Call 911 or return to the emergency department right away if you develop any of these symptoms: Worsening shortness of breath or difficulty breathing, especially at rest Shortness of breath that does not improve with your rescue inhaler Chest pain that is different from what you experienced today or that spreads to your arm, jaw, or back Chest pain with sweating, nausea, or lightheadedness Confusion or difficulty thinking clearly Fever (temperature over 100.4F or 38C) Coughing up blood Blue or mejia lips or fingernails Extreme fatigue or weakness that prevents you from doing basic activities Swelling in your legs or ankles Fast or irregular heartbeat Feeling like you might pass out Also Contact Your Doctor If: Your symptoms are not improving after 3-5 days of treatment You develop severe diarrhea while taking the antibiotic You have trouble sleeping or severe mood changes from the prednisone You notice ringing in your ears or hearing changes Important Reminders: Do not smoke - smoking makes COPD worse and slows your recovery Take all your medications exactly as prescribed Keep using your regular COPD inhalers - do not stop them during this flare-up If you have diabetes, check your blood sugar more frequently while on prednisone Finish the full course of antibiotics and steroids even if you feel better Questions to Ask Your Doctor at Follow-Up: Should my regular COPD medications be changed? Do I need a pneumonia vaccine or flu shot? Would pulmonary rehabilitation help me? What can I do to prevent future flare-ups? Referrals: NO PRIMARY CARE PROVIDER (PCP) Prescriptions Prednisone* (Prednisone*) 20 Mg Tablet 1 TAB PO DAILY for 5 Days, #5 TAB Prov: TREVA VALDEZ 07/17/25 Azithromycin (Azithromycin) 500 Mg Tablet 1 TAB PO DAILY for 5 Days, #5 TAB 0 Refills Prov: TREVA VALDEZ 07/17/25 Education Educated: Patient Educated regarding: diagnosis, treatment, need for follow up Signature Scribe Signature: A Attestation: Scribed for Treva Valdez by ASHLYN Landa . 07/17/25 00:30 TREVA VALDEZ Jul 17, 2025 00:26
[2025-07-17] MEDS ORDERED: AZIT500T9 PO (00:53)
[2025-07-17] MEDS ORDERED: PRED20TA PO (00:53)
[2025-07-17] MEDS ORDERED: ipratropium/albuterol 3ml nebule NEB PRN (01:20)
[2025-07-17] MEDS: ipratropium/albuterol 3ml nebule NEB STA (01:35)
[2025-07-17 01:36] VITALS: PULSE 97; RESP 20
[2025-07-17 01:43] VITALS: PULSE 101; RESP 20; O2SAT 99
[2025-07-17] MEDS: ketorolac trometh 15mg/ml vial 15 MG/ML ML IM ONE (02:04)
[2025-07-17 02:16] VITALS: BP 139/86; PULSE 93; RESP 16; TEMP 98.4; O2SAT 97
--- NOTE | 2025-07-17 05:27 | ELECTROCARDIOGRAPH REPORT ---
[facility] Test Date: 2025-07-16 Test Time: 20:48:47 Pat Name: YONATAN FERNANDEZ Department: EMERGENCY ROOM Room: Gender: F Jackspooler: NELI : 1960 Requested By: MAX SOMMER Order Number: [id number] Reading MD: Dr. Tacos Otero Measurements Intervals [place] Rate: 100 P: 69 IA: 130 QRS: 91 QRSD: 116 T: 58 QT: 378 QTc: 488 Interpretive Statements Sinus tachycardia Atrial premature complex Incomplete right bundle branch block Baseline wander in lead(s) V6 Electronically Signed On 07-17-2025 11:17:[address] Tacos Otero Please click the below link to view image of tracing.
== END 2025-07-17 02:28 | disposition home or self-care (01) ==
LOC: ER 20:46
DX: J44.1 Chronic obstructive pulmonary disease with (acute) exacerbation (principal); R07.89 Other chest pain; M19.90 Unspecified osteoarthritis, unspecified site; F15.90 Other stimulant use, unspecified, uncomplicated; F11.90 Opioid use, unspecified, uncomplicated; F19.90 Other psychoactive substance use, unspecified, uncomplicated; Z90.710 Acquired absence of both cervix and uterus; Z88.5 Allergy status to narcotic agent; Z56.0 Unemployment, unspecified; Z79.899 Other long term (current) drug therapy
CPT/HCPCS: 36415; 71045; 80048; 81003; 83880; 84484; 85025; 93005; 94640; 96372; 99285; J1885; J7512; 94760